=== PATIENT | female | born 1945 | race Caucasian/White ===

== ENCOUNTER 2019-07-19 12:44 | Inpatient (IN) | payer OTHER ==
[~2019-07-19] VITALS: Ht 154.9 cm; Wt 67.4 kg
[2019-07-19 13:08] LABS: HEMATOCRIT 42.3 % (37.0-47.0); MCH 31.1 pg (26.0-34.0); MCHC 33.2 g/dL (28.0-37.0); MCV 93.8 fL (80.0-100.0); PLATELET COUNT 340 thou/uL (150-400); RDW 13.4 % (10.5-14.5); WBC 10.8 thou/uL (4.0-11.0)
[2019-07-19] MEDS ORDERED: CELEXA20 MG PO (13:10)
[2019-07-19] MEDS ORDERED: ACYCLOVIR 400400 MG PO (13:10)
[2019-07-19] MEDS ORDERED: CLONAZEPAM 0.50.5 M1 PO (13:11)
[2019-07-19] MEDS ORDERED: PREMARIN0.625 MG PO (13:11)
[2019-07-19] MEDS ORDERED: OMEPRAZOLE 20 M20 M1 PO (13:11)
[2019-07-19] MEDS ORDERED: PROPRANOLOL 1010 MG PO (13:11)
[2019-07-19] MEDS ORDERED: SYNTHROID75 MCG PO (13:12)
[2019-07-19] MEDS ORDERED: TRIAMTERENE-HC1 EAC2 PO (13:13)
[2019-07-19] MEDS ORDERED: TUMS PO (13:14)
[2019-07-19] MEDS ORDERED: ZINC CHELATE50 MG PO (13:14)
[2019-07-19] MEDS ORDERED: FISH OIL 1,001000 M2 PO (13:14)
[2019-07-19 13:15] LABS: ANION GAP 5 mmol/L (7-16); BUN 23 mg/dL (7-18); CALCIUM 9.4 mg/dL (8.5-10.1); CHLORIDE 103 mmol/L (98-107); CO2 32 mmol/L (21-32); CREATININE 0.8 mg/dL (0.6-1.0); GLUCOSE 93 mg/dL (74-106); POTASSIUM 3.8 mmol/L (3.5-5.1); SODIUM 140 mmol/L (136-145)
[2019-07-19] MEDS ORDERED: VITAMIN B122500 MC1 PO (13:15)
[2019-07-19] MEDS ORDERED: VITAMINC500 PO (13:15)
[2019-07-19] MEDS ORDERED: CENTRUM SILVER1 EAC4 PO (13:15)
[2019-07-19 13:25] LABS: ALBUMIN 3.5 g/dL (3.4-5.0); LIPASE 153 U/L (73-393); SGOT 19 U/L (15-37); SGPT 29 U/L (30-65); TOTAL BILIRUBIN 0.3 mg/dL (<0.1-1.0); TOTAL PROTEIN 7.1 g/dL (6.4-8.2); TROPONIN-I <0.06 ng/mL (<0.06)
[2019-07-19 13:49] LABS: ABSOLUTE NEUTROPHILS 5.3 thou/uL (1.4-8.2)
[2019-07-19 15:49] VITALS: BP 155/69
[2019-07-19 16:45] VITALS: BP 175/78
--- NOTE | 2019-07-19 18:06 | EKG ---
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
--- NOTE | 2019-07-19 18:35 | NUR ---
PT. 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
[2019-07-19 20:03] VITALS: BP 136/55
[2019-07-20 00:10] VITALS: BP 169/82
[2019-07-20 04:46] VITALS: BP 135/66
--- NOTE | 2019-07-20 04:51 | NUR ---
ASSESSMENTS CHARTED, MEDS CHARTED. PATIENT ARRIVED FROM ED DURING DAY WITH CHEST PAIN, TROPONIN NEGATIVE. ACID REFLUX ALSO. SR IN 60'S ON TELEMETRY. ON ROOM AIR. UP AT LINDSAY IN ROOM. PATIENT LIVES ALONE WITH HER DOG AT HOME. MODERATE HIATAL HERNIA SHOWS UP ON CHEST XRAY. DENIED PAIN. PLAN OF CARE TO DIAGNOSE CAUSE OF CHEST PAIN/ESOPHAGEAL PAIN.
[2019-07-20 07:40] VITALS: BP 135/63
[2019-07-20 11:40] VITALS: BP 121/60
--- NOTE | 2019-07-20 17:25 | NUR ---
ASSUMED CARE AT SHIFT CHANGE, VSS AND AFEBRILE. ASSEEMENT DOCUMENTED AND DISTRESS NOTED. AND WILL CONTINUE WITH CURRENT POC.
[2019-07-20 19:50] VITALS: BP 149/63
--- NOTE | 2019-07-21 00:16 | NUR ---
ASSESSMENTS CHARTED. MEDS GIVEN CHARTED. PATIENT UP AT LINDSAY IN ROOM. DENIES PAIN. NPO SINCE MIDNIGHT FOR NUCLEAR STRESS TEST IN MORNING. PLAN OF CARE WILL VARY BASED ON RESULTS. POSSIBLE EGD OUTPATIENT.
[2019-07-21 04:23] VITALS: BP 154/59
[2019-07-21 07:35] VITALS: BP 149/68
--- NOTE | 2019-07-21 08:59 | 2DMMODE ---
[facility] [address] [place] [address] 2 D/M-MODE ECHOCARDIOGRAM Name: GLENMERISSA Room #: 208-P ADM IN ..#: [id number] Admission: 07/19/19 Attend Phys: Mike Vázquez Discharge: Date of : 41 Report #: [id number] THIS REPORT FOR: //name// APPROVED REPORT Study performed: 07/21/2019 08:18:01 EXAM: Comprehensive 2D, Doppler, and color-flow Echocardiogram Patient Location: Echo lab Room #: 208 Status: routine BSA: 1.65 HR: 58 bpm BP: 154/59 mmHg Rhythm: NSR Other Information Study Quality: Good Indications Chest Pain Hx: HTN, HLP. 2D Dimensions RVDd: 29.14 mm IVSd: 10.37 (7-11mm) LVOT Diam: 18.46 (18-24mm) LVDd: 37.80 mm PWd: 8.35 (7-11mm) Ascending Ao: 25.16 (22-36mm) LVDs: 24.11 (25-40mm) Aortic Root: 27.33 mm Volumes Left Atrial Volume (Systole) Single Plane 4CH: 58.20 mL Single Plane 2CH: 45.42 mL LA ESV Index: 34.00 mL/m2 Aortic Valve AoV Peak Benji.: 1.62 m/s AO Peak Gr.: 10.43 mmHg LVOT Max P.76 mmHg LVOT Max V: 1.39 m/s BLADE Vmax: 2.31 cm2 Mitral Valve E/A Ratio: 0.8 MV Decel. Time: 267.55 ms [facility] [address] [place] [address] 2 D/M-MODE ECHOCARDIOGRAM Name: SANDER CARROLLKAYLA Harry Room #: 208-P [facility] IN [facility].#: [id number] Admission: 07/19/19 Attend Phys: Mike Vázquez Discharge: Date of : 41 Report #: [id number] MV E Max Benji.: 0.71 m/s MV A Benji.: 0.90 m/s MV PHT: 77.59 ms IVRT: 119.95 ms Pulmonary Valve PV Peak Benji.: 0.79 m/s PV Peak Gr.: 2.48 mmHg Pulmonary Vein P Vein S: 0.62 m/s P Vein A: 0.31 m/s P Vein D: 0.38 m/s P Vein A Dur.: 143.0 msec P Vein S/D Ratio: 1.63 Tricuspid Valve TR Peak Benji.: 2.56 m/s RAP Estimate: 5.00 mmHg TR Peak Gr.: 26.19 mmHg PA Pressure: 31.00 mmHg Left Ventricle The left ventricle is normal size. There is normal LV segmental wall motion. Mild basal septal hypertrophy is present. Left ventricular systolic function is hyperdynamic. LVEF is 65-70%. Mild diastolic dysfunction is present (impaired relaxation pattern). Right Ventricle The right ventricle is normal size. The right ventricular systolic function is normal. Atria Left atrium is mildly dilated. The right atrium size is normal. Aortic Valve The aortic valve is normal in structure. No aortic regurgitation is present. There is no aortic valvular stenosis. Mitral Valve The mitral valve is normal in structure. Mild mitral regurgitation. Tricuspid Valve The tricuspid valve is normal in structure. Mild to moderate tricuspid regurgitation. Estimated PAP is 30-35mmHg. Pulmonic Valve The pulmonary valve is normal in structure. Trace pulmonic [facility] [address] [place] [address] 2 D/M-MODE ECHOCARDIOGRAM Name: MERISSA CARROLL Room #: 208-P [facility] IN ..#: [id number] Admission: 07/19/19 Attend Phys: Mike Vázquez Discharge: Date of : 41 Report #: [id number] regurgitation. Great Vessels The aortic root is normal in size. The ascending aorta is normal in size. IVC is normal in size and collapses >50% with inspiration. Pericardium There is no pericardial effusion. <Conclusion> The left ventricle is normal size. Left ventricular systolic function is hyperdynamic. Mild diastolic dysfunction is present (impaired relaxation pattern). The right ventricle is normal size. Left atrium is mildly dilated. The aortic valve is normal in structure. Mild mitral regurgitation. Mild to moderate tricuspid regurgitation. Estimated PAP is 30-35mmHg. <ELECTRONICALLY SIGNED> By: Steve Landeros MD 07/21/19857 7 7 Steve Landeros MD /INF
[2019-07-21 11:50] VITALS: BP 132/62
--- NOTE | 2019-07-21 12:58 | H ---
[facility] [place] [address] HISTORY AND PHYSICAL Name: MERISSA CARROLL Room #: 208-P ADM IN M.R.#: [id number] Admission: 07/19/19 Attend Phys: Fan Benson Discharge: Date of : 41 Report #: [id number] THIS REPORT FOR: //name// CC: Mike Alberto Juan Jose DATE OF SERVICE: 07/20/2019 CHIEF COMPLAINT: Chest pain. HISTORY OF PRESENT ILLNESS: The patient is a 73-year-old female who came to the Emergency Room with a 1-day history of chest pain. She said symptoms began about noon yesterday and lasted for about half an hour. She had substernal chest pain that she describes as "pressure" that radiated up to her neck down to her lower chest and through to her back. She said it has been off and on for a month. She has had some description of heartburn and indigestion type symptoms as well. She was seen in the office this week and cardiac evaluation was recommended. She had a stress test some 5 plus years ago that was unremarkable. She does give a history of esophageal issues where she has had esophageal dilatation in the past and what she describes as a gastric ulcer. PAST MEDICAL HISTORY: Hypertension, hypothyroidism, essential tremor, anxiety, depression. PAST SURGICAL HISTORY: Noncontributory. SOCIAL HISTORY: No chronic alcohol or tobacco use. 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 ALLERGIES: ASPIRIN, MALTODEXTRIN AND SULFA. MEDICATIONS: Acyclovir, Celexa, clonazepam, omeprazole, Premarin, Inderal, Levoxyl, hydrochlorothiazide, calcium, fish oil, multivitamin, vitamin C, vitamin B12. REVIEW OF SYSTEMS: Denies headache, chest pain, shortness of breath, abdominal pain, nausea, vomiting, diarrhea, constipation, dysuria, syncope. OBJECTIVE: VITAL SIGNS: Temperature 36.6, pulse 59, respirations 19, blood pressure 135/63, O2 sat 94% on room air. GENERAL: She is awake and alert, in no distress. HEAD AND NECK: Unremarkable. LUNGS: Clear. HEART: Regular. ABDOMEN: Soft, normoactive bowel sounds. [facility] [address] [place] [address] HISTORY AND PHYSICAL Name: MERISSA CARROLL Room #: 208-[facility] IN [facility].#: [id number] Admission: 07/19/19 Attend Phys: Fan Benson Discharge: Date of : 41 Report #: [id number] EXTREMITIES: No edema. NEUROLOGIC: Intact. LABORATORY DATA: Review was unremarkable and troponin negative x 2. ASSESSMENT: 1. Chest pain. PLAN: Given her age, cardiac evaluation is a consideration and will await their opinion on whether stress testing is indicated at this point. She does have some esophageal and GI history and consideration there is esophageal spasm or ulcer. The GI Service to see her and consider endoscopy. <ELECTRONICALLY SIGNED> By: Sidney Wheatley MD 07/21/19 1948 [id number] 1009 Sidney Wheatley MD /ken
[2019-07-21 15:24] VITALS: BP 132/62
--- NOTE | 2019-07-21 15:33 | NUR ---
ASSUMED CARE AT SHIFT CHANGE. ALERT AND ORIENTED X4, SR-SB ON THE MONITOR. VSS AND AFEBRILE. DISCHARGE AND MEDICATION INSTRUCTIONS GIVEN AND PATIENT VERBALIZED UNDERSTANDING.
--- NOTE | 2019-07-22 14:02 | EKG ---
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
--- NOTE | 2019-07-24 11:51 | HC ---
[facility] [place] [address] CONSULTATION Name: MERISSA CARROLL Room #: 208-P [facility] IN ..#: [id number] Admission: 07/19/19 Attend Phys: Fan Benson Discharge: 07/21/19 Date of : 41 Report #: [id number] THIS REPORT FOR: //name// CC: Mike Paredes MD GASTROINTESTINAL CONSULTATION REASON FOR CONSULTATION: The patient is a 73-year-old woman with progressively worsening chest pain. HISTORY OF PRESENT ILLNESS: This patient reports that she has had a number of GI issues in the past. First of all, she states that she has had a hiatus hernia for nearly 50 years. She has been evaluated in the past and had an upper endoscopy, probably 8-10 years ago. She does not recall specifics, but does recall, she was told she had a hiatus hernia and that she was dilated. She has been on omeprazole 20 mg daily for many years, which generally does a good job controlling her typical burning reflux symptoms. She also has a history of duodenal ulcer disease. She has not had problems with ulcers in many years. She also has a history of irritable bowel syndrome with constipation. She had lots of symptoms when she was in college. With time, the symptoms are generally settled down, but she still has issues with constipation. She typically have a stool once daily. Sometimes, she will need to "dig herself out." She also noted she has had a previous total abdominal hysterectomy at age 33. She does not take anything specific or constipation. She has avoided fiber because sometimes it makes her feel worse. She reports chest pain started about a year or so ago. She describes an upper retrosternal pressure type pain. It initially occurred intermittently. It may be associated with episodes of spasm which radiated into her jaw and sometimes into her back. She cannot identify any precipitating events or foods which caused her to have spasm. The episodes of spasm will typically last about 10 minutes or so. She usually just tries to bear through it. Other than omeprazole, she has not taken any specific medicines for reflux symptoms or spasm. In the past few weeks, the episodes of chest pain have worsened to the point that she feels symptoms essentially on a daily basis. The episodes of spasm continued to come and go. She is not having dysphagia at this time nor she having nausea, vomiting. PAST MEDICAL HISTORY: She has had high blood pressure, hyperlipidemia, hiatus hernia, irritable bowel syndrome with constipation [place] [address] CONSULTATION Name: MERISSA CARROLL Room #: 208-P [facility] IN ..#: [id number] Admission: 07/19/19 Attend Phys: Fan Benson Discharge: 07/21/19 Date of : 41 Report #: [id number] PAST SURGICAL HISTORY: Total abdominal hysterectomy at age 33, cataract surgery, inguinal hernia repair and thyroidectomy for thyroid disease. ALLERGIES: SULFA, ASPIRIN, and MALTODEXTRIN. MEDICATIONS: Usual home medicines; acyclovir 200 mg daily, vitamin C 500 mg daily, chewable Tums 2 daily, citalopram 5 mg twice daily, clonazepam 0.5 mg twice daily, vitamin B12, fish oil, conjugated estrogen 0.625 mg daily, Synthroid 75 mcg daily, Centrum multivitamin, omeprazole 20 mg daily, propranolol 10 mg twice daily, triamterene/hydrochlorothiazide 1 daily, zinc chewable 50 mg daily. FAMILY HISTORY: Mother had AFib. Sister had AFib. No family history of colon cancer, ulcer disease or gallbladder disease. SOCIAL HISTORY: for many years. She has never smoked and does not use much alcohol. REVIEW OF SYSTEMS: GENERAL: No change in weight, fever or chills. CENTRAL NERVOUS SYSTEM: No focal weakness, numbness, loss of consciousness, seizures or strokes. ENT: No change in vision or sores in the mouth. PULMONARY: No cough, pneumonia or tuberculosis. CARDIOVASCULAR: Recent chest pain. No known heart disease or palpitations. GASTROINTESTINAL: No recent dysphagia, although she has been dilated in the past. Typical reflux symptoms are controlled with omeprazole. She does have constipation and has stools once weekly. No GI bleeding. She had a screening colonoscopy earlier this year and she reports it was negative. GENITOURINARY: Without dysuria, pyuria, kidney stones, contracture or infection. GYNECOLOGIC: Previous hysterectomy. She is not aware of a diagnosis of a rectocele. No breast problems. MUSCULOSKELETAL: Arthritis in one finger. SKIN: Without rashes. She reports multiple moles without change. PSYCHIATRIC: On medicines for anxiety. No history of depression. ENDOCRINE: She does have thyroid disease. She is not aware of diabetes. HEMATOLOGIC: No bleeding, bruising or malignancies. PHYSICAL EXAMINATION: GENERAL: The patient is a well-developed, well-nourished, pleasant woman who is awake, alert and oriented, no acute distress. VITAL SIGNS: Blood pressure 135/63, pulse 59. She is afebrile. HEENT: Anicteric. Pupils equal and round. Oropharynx clear. NECK: Supple. [facility] [address] [place] [address] CONSULTATION Name: MERISSA CARROLL Room #: 208-P DIS IN Jesus#: [id number] Admission: 07/19/19 Attend Phys: Fan Benson Discharge: 07/21/19 Date of : 41 Report #: [id number] CHEST: Clear. HEART: Regular rate and rhythm, normal S1, normal S2. ABDOMEN: Normal bowel sounds, soft, nontender, without hepatosplenomegaly or masses. RECTAL: Not done. EXTREMITIES: Without cyanosis, clubbing, or edema. NEUROLOGICAL: Oriented to person, place, and time. Moves all 4 extremities well. ASSESSMENT: 1. Atypical chest pain. 2. Gastroesophageal reflux disease, longstanding. 3. Hiatus hernia. 4. Irritable bowel syndrome with constipation. 5. High blood pressure. RECOMMENDATIONS: 1. Agree with cardiovascular evaluation, which is in progress. 2. Ultrasound of the gallbladder to evaluate for gallbladder disease. 3. If cardiovascular evaluation was nondiagnostic, upper endoscopy for further evaluation of poorly controlled reflux would be reasonable. Potentially, this could be done as an outpatient. 4. MiraLax for constipation. 5. 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 6. Ultrasound of the gallbladder to evaluate for gallbladder disease, which could be a factor with regards to chest pain. <ELECTRONICALLY SIGNED> By: Johnnie Sepulveda MD 07/24/19 1151 1101 2155 Johnnie Sepulveda MD /nt
== END 2019-07-21 16:00 | disposition home or self-care (01) | DRG 313 ==
LOC: ER 12:44 → 2N 15:24 → EROBS 15:24 → 2N 16:17
PROVIDERS: Nurse Practitioner Family; ADMIT Internal Medicine
DX: R07.89 Other chest pain (principal); K44.9 Diaphragmatic hernia without obstruction or gangrene; I10 Essential (primary) hypertension; E78.5 Hyperlipidemia, unspecified; K21.9 Gastro-esophageal reflux disease without esophagitis; E89.0 Postprocedural hypothyroidism; K58.1 Irritable bowel syndrome with constipation; F41.9 Anxiety disorder, unspecified; F32.9 Major depressive disorder, single episode, unspecified; Z82.49 Family history of ischemic heart disease and other diseases of the circulatory system; Z88.6 Allergy status to analgesic agent; Z90.710 Acquired absence of both cervix and uterus; Z98.42 Cataract extraction status, left eye; Z98.41 Cataract extraction status, right eye; Z79.899 Other long term (current) drug therapy; Z88.2 Allergy status to sulfonamides; Z88.8 Allergy status to other drugs, medicaments and biological substances; Z87.891 Personal history of nicotine dependence; Z83.3 Family history of diabetes mellitus; Z82.3 Family history of stroke; Z80.8 Family history of malignant neoplasm of other organs or systems
CPT/HCPCS: 10081